=== PATIENT | male | born 1965 | race Two or more races ===

== ENCOUNTER 2019-08-08 13:21 | Emergency (ER) | payer BC, SELFPAY ==
[~2019-08-08] VITALS: Ht 182.9 cm; Wt 77.1 kg
[2019-08-08 13:59] VITALS: Ht 182.9 cm; Wt 77.1 kg
== END 2019-08-08 15:31 | disposition home or self-care (01) ==
LOC: ED 13:21
DX: Z20.828 Contact with and (suspected) exposure to other viral communicable diseases (principal)
CPT/HCPCS: Q0092